=== PATIENT | female | born 1955 | race African-American/Black ===

== ENCOUNTER → 2020-03-02 12:04 | Outpatient (CLI) | payer MEDICARE, OTHER, SELFPAY ==
--- NOTE | ~2020-03-02 | MR_ITS ---
. EXAMINATION: MR lumbar spine wo con DATE: 03/02/2020 12:56 INDICATION: Low back pain. TECHNIQUE: Magnetic resonance imaging (MRI) of the lumbar spine was performed without intravenous con trast. Sequences included sagittal T2-weighted FSE, sagittal T2-weighted FS FSE, sagittal T1-weighted FSE, and axial T2-weighted FSE. COMPARISON: None FINDINGS: There is 6 degrees levocurvature of lumbar spine. There is 3 mm anterolisthesis of L4 on L5 . Vertebral body heights are normal. There is severely decreased disc height at L2-L3, moderately dec reased disc height at L3-L4, mildly decreased disc height at L4-L5, and severely decreased disc heigh t at L5-S1. The distal spinal cord signal intensity is normal. The conus medullaris is at T12-L1. The re is a 1.3 cm cyst in right kidney. The following disc levels are specifically discussed: L1-L2: There is a central protrusion. There is mild bilateral facet joint osteoarthritis. There is no neural foraminal stenosis. There is mild central canal stenosis. L2-L3: The disc is bulging and has an annular fissure. There is severe bilateral facet joint osteoart hritis. There is moderate bilateral neural foraminal stenosis. There is mild central canal stenosis. L3-L4: The disc is bulging and has an annular fissure. There is severe bilateral facet joint osteoart hritis. There is moderate bilateral neural foraminal stenosis. There is mild central canal stenosis. L4-L5: The disc is bulging and has an annular fissure. There is severe bilateral facet joint osteoart hritis. There is mild right and moderate left neural foraminal stenosis. There is mild central canal stenosis. L5-S1: The disc is bulging and has an annular fissure. There is moderate bilateral facet joint osteoa rthritis. There is mild right and moderate left neural foraminal stenosis. There is mild central nilam l stenosis. IMPRESSION: 1. Severe lumbar spondylosis. Reviewed, dictated and finalized at location A.
== END ==
PROVIDERS: Visit Provider Physical Medicine & Rehabilitation Pain Medicine
DX: M47.896 Other spondylosis, lumbar region (principal)
CPT/HCPCS: 72148

== ENCOUNTER → 2022-02-12 09:59 | Outpatient (CLI) | payer MEDICARE, OTHER, SELFPAY ==
--- NOTE | ~2022-02-12 | CT_ITS ---
EXAMINATION: CT thoracic spine wo con DATE: 02/12/2022 10:25 INDICATION: Other intervertebral disc degeneration, lumbar region. TECHNIQUE: Computed tomography (CT) of the thoracic spine was performed without intravenous contrast. Automated exposure control and iterative reconstruction technique were employed. The dose-length pro duct was 1066.16 mGy-cm. COMPARISON: None FINDINGS: There is 9 degrees dextrocurvature of thoracic spine. There is mild chronic anterior wedgin g of T7 vertebral body. There is mildly decreased disc height at T1-T2, moderately decreased disc hei ght at T2-T3, and mildly decreased disc height at T3-T4, T6-T7, and T7-T8. There are bridging endplat e osteophytes from T4 to L1, consistent with diffuse idiopathic skeletal hyperostosis. There is multi level facet joint osteoarthritis, severe on the right at T2-T3 and T3-T4 and severe on the left at T7 -T8. There is multilevel mild neural foraminal stenosis bilaterally. On the right, there is moderate neural foraminal stenosis from T2-T3 through T8-T9. On the left, there is moderate neural foraminal s tenosis from T2-T3 through T8-T9. There is mild central canal stenosis at T11-T12. There are changes of cholecystectomy. IMPRESSION: 1. Moderate thoracic spondylosis. 2. DISH. Reviewed, dictated and finalized at location A.
== END ==
PROVIDERS: PCP Internal Medicine Endocrinology, Diabetes & Metabolism; Visit Provider Physical Medicine & Rehabilitation Pain Medicine
DX: M51.36 Other intervertebral disc degeneration, lumbar region (principal); M54.16 Radiculopathy, lumbar region; M47.894 Other spondylosis, thoracic region
CPT/HCPCS: 72128